=== PATIENT | female | born 1965 | race Caucasian/White ===

== ENCOUNTER → 2016-09-19 | Outpatient (CLI) | payer MEDICAID ==
[~2016-09-19] MED LIST: CATHETER FLUSH 10 ML SYR IV PRN; IOHEXOL 350 MG/ML 100 ML (OMNIPAQUE 350) VIAL IV ONE; NS 100 ML (IVPB) BAG IV ONE
--- OUTSIDE RECORDS SUMMARY | 2016-09-19 11:18 | XMS REPORT | Continuity of Care Document ---
Author Author [facility] Organization [facility] Address Unknown Phone Unavailable Care Team Providers Care Plant Science Professor Name Role Phone Self, Referral PCP Unavailable Source Comments Some departments are not documenting in the electronic medical record. If you do not see the information that you expected, contact Release of Information in the Health Information Management department at [phone] for further assistance in locating additional records.[facility] Active Allergies and Adverse Reactions Not on File Current Medications Not on file Active Problems Not on file Social History Tobacco Use Types Packs/Day Years Used Date Never Assessed Plan of Care Health Maintenance Due Date Last Done Comments Physical (Comprehensive) 1970 Exam Pertussis Vaccine 1974 Tetanus Vaccine 1980 Cervical Cancer Screening 1984 Breast Cancer Screening 2003 Colorectal Cancer 2013 Screening Influenza Vaccine 05/15/2016 Results from Last 3 Months Not on file
[2016-09-19 11:46] LABS: CREATININE SERUM 1.16 MG/DL (0.60-1.30)
--- NOTE | 2016-09-19 19:01 | Diagnostic Imaging Report ---
PROCEDURE: CT head with and without contrast. TECHNIQUE: Multiple contiguous axial images were obtained through the brain before and after the administration of intravenous contrast. INDICATION: Headache. 8 mL of Omnipaque-350 administered intravenously FINDINGS: The unenhanced phase demonstrates no intracranial hemorrhage, edema or mass effect. There is no hydrocephalus. No extra-axial fluid collection is seen. After contrast administration, no enhancing mass in the brain or in the extra-axial space is noted. The calvarium, the visualized portions of the paranasal sinuses and orbits appear symmetric. IMPRESSION: Unremarkable exam. No enhancing lesion. Dictated by: Dictated on workstation # [id number]
== END ==
LOC: RAD 11:15
PROVIDERS: ATTEND Psychiatry & Neurology Neurology
DX: G43.019 Migraine without aura, intractable, without status migrainosus (principal)
CPT/HCPCS: 36415; 70470; 82565; 84520